=== PATIENT | male | born 1965 | race Hispanic/Latino ===

== ENCOUNTER 2021-09-15 22:09 | Emergency (ER) | payer OTHER ==
[~2021-09-15] VITALS: Ht 165.1 cm; Wt 68.0 kg
[2021-09-15 22:23] LABS: BASOPHILS % (AUTO) 0.6 % (0.0-5.0); HEMATOCRIT 41.9 % (42-54); LYMPHOCYTES % (AUTO) 27.6 % (21.0-51.0); MEAN CORPUSCULAR HGB CONC 32.5 g/dL (32.0-36.0); MEAN CORPUSCULAR VOLUME 86.2 fL (79-99); MONOCYTES % (AUTO) 8.5 % (3.0-13.0); NEUTROPHILS % (AUTO) 61.9 % (40.0-77.0); PLATELET COUNT (AUTO) 150 K/uL (130-400); RED BLOOD CELL COUNT(AUTO) 4.86 MIL/uL (4.50-6.20); RED CELL DISTRIBUTION WIDTH 12.2 % (11.0-15.5)
[2021-09-15] MEDS ORDERED: NITROGLYCERIN 0.4 MG SL TAB SL PRN (22:30)
[2021-09-15] MEDS ORDERED: NITROGLYCERIN 1GM OINT 1 INCH/1GM TD ONE (22:30)
[2021-09-15] MEDS ORDERED: ASPIRIN 325MG TAB PO ONE (22:30)
[2021-09-15 22:43] LABS: CREATININE 0.9 mg/dL (0.5-1.5); POTASSIUM 4.4 mmol/L (3.5-5.1)
[2021-09-15 22:47] LABS: ALBUMIN 3.7 g/dL (3.5-5.0); BILIRUBIN,TOTAL 0.3 mg/dL (0.2-1.0); TOTAL PROTEIN, SERUM 7.1 g/dL (6.0-8.3)
[2021-09-15] MEDS ORDERED: INSULIN HUMULIN R 100 UNIT/ML 3ML IV ONE (23:00)
[2021-09-15] MEDS ORDERED: 0.9%NACL 1000ML 1,000 ML IV ONE (23:00)
[2021-09-16 04:40] VITALS: BP 115/70
== END 2021-09-16 04:50 | disposition home or self-care (01) ==
LOC: EDH 22:09
DX: R07.89 Other chest pain (principal); Z79.82 Long term (current) use of aspirin
CPT/HCPCS: 36415; 71045; 80053; 82010; 82550; 82948; 83690; 84484 ×2; 85025; 93005; 96361; 96374; 99285; J1815; J7030

== ENCOUNTER 2022-08-22 00:05 | Emergency (ER) | payer OTHER ==
[2022-08-22] MEDS ORDERED: IBUP-2076 PO (01:46)
[2022-08-22 02:12] VITALS: BP 141/68
== END 2022-08-22 02:14 | disposition home or self-care (01) ==
LOC: EDH 00:05
DX: M54.2 Cervicalgia (principal); M54.50 Low back pain, unspecified; E11.9 Type 2 diabetes mellitus without complications; Z79.1 Long term (current) use of non-steroidal anti-inflammatories (NSAID); V59.88XA Occupant (driver) (passenger) of pick-up truck or van injured in other specified transport accidents, initial encounter; Y93.89 Activity, other specified; Y92.89 Other specified places as the place of occurrence of the external cause; Y99.8 Other external cause status
CPT/HCPCS: 72040; 72100; 73562